=== PATIENT | female | born 1975 | race American Indian/Alaskan Native ===

== ENCOUNTER 2018-06-09 10:00 | Outpatient (CLI) | payer BC | END 2018-06-09 10:01 | disposition home or self-care (01) | LOC: WOUND 10:00 | PROVIDERS: ATTEND Surgery | DX: T86.828 Other complications of skin graft (allograft) (autograft) (principal); S71.002A Unspecified open wound, left hip, initial encounter; L97.122 Non-pressure chronic ulcer of left thigh with fat layer exposed; Z87.891 Personal history of nicotine dependence; V89.2XXA Person injured in unspecified motor-vehicle accident, traffic, initial encounter; Y93.89 Activity, other specified; Y92.89 Other specified places as the place of occurrence of the external cause; Y99.8 Other external cause status; Y83.2 Surgical operation with anastomosis, bypass or graft as the cause of abnormal reaction of the patient, or of later complication, without mention of misadventure at the time of the procedure | CPT/HCPCS: 10060; 11042; 11045; G0463 ==

== ENCOUNTER 2018-06-09 16:21 | Outpatient (CLI) | payer BC ==
[2018-06-09 16:38] LABS: Basophils % (Auto) 0.6 % (0.0-1.8); Eosinophils # (Auto) 0.1 K/mm3 (0.0-0.4); Eosinophils % (Auto) 0.9 % (0.0-4.3); Hematocrit 30.4 % (30.3-42.9); Lymphocytes # (Auto) 1.5 K/mm3 (1.2-5.4); Lymphocytes % (Auto) 20.4 % (13.4-35.0); Mean Corpuscular HGB Conc 33 % (30-34); Mean Corpuscular Hemoglobin 28 pg (28-32); Mean Corpuscular Volume 85 fl (79-97); Monocytes # (Auto) 0.7 K/mm3 (0.0-0.8); Monocytes % (Auto) 9.4 % (0.0-7.3); Platelet Count 408 K/mm3 (140-440); Red Blood Count 3.59 M/mm3 (3.65-5.03); Red Cell Distribution Width 15.6 % (13.2-15.2)
== END 2018-06-09 16:22 | disposition home or self-care (01) ==
LOC: LAB 16:21
PROVIDERS: ATTEND Surgery
DX: D64.9 Anemia, unspecified (principal)
CPT/HCPCS: 36415; 85025

== ENCOUNTER 2018-06-21 08:33 | Outpatient (CLI) | payer BC ==
[2018-06-21] MEDS ORDERED: XYLOCAINE TOPICAL 4% TP ONE ×2 (08:58→09:09)
== END 2018-06-21 08:34 | disposition home or self-care (01) ==
LOC: WOUND 08:33
PROVIDERS: ATTEND Surgery
DX: T86.828 Other complications of skin graft (allograft) (autograft) (principal); S71.002D Unspecified open wound, left hip, subsequent encounter; Z87.891 Personal history of nicotine dependence; X58.XXXD Exposure to other specified factors, subsequent encounter; Y83.2 Surgical operation with anastomosis, bypass or graft as the cause of abnormal reaction of the patient, or of later complication, without mention of misadventure at the time of the procedure
CPT/HCPCS: 97605

== ENCOUNTER 2018-06-28 08:42 | Outpatient (CLI) | payer BC ==
[2018-06-28] MEDS ORDERED: XYLOCAINE TOPICAL 4% TP ONE ×2 (08:58→09:14)
== END 2018-06-28 08:43 | disposition home or self-care (01) ==
LOC: WOUND 08:42
PROVIDERS: ATTEND Surgery
DX: T86.828 Other complications of skin graft (allograft) (autograft) (principal); S71.002D Unspecified open wound, left hip, subsequent encounter; Z87.891 Personal history of nicotine dependence; X58.XXXD Exposure to other specified factors, subsequent encounter; Y83.2 Surgical operation with anastomosis, bypass or graft as the cause of abnormal reaction of the patient, or of later complication, without mention of misadventure at the time of the procedure
CPT/HCPCS: 97605

== ENCOUNTER 2018-07-05 08:17 | Outpatient (CLI) | payer BC ==
[2018-07-05] MEDS ORDERED: XYLOCAINE TOPICAL 4% TP ONE ×2 (08:27→10:04)
== END 2018-07-05 08:18 | disposition home or self-care (01) ==
LOC: WOUND 08:17
PROVIDERS: ATTEND Surgery
DX: T86.828 Other complications of skin graft (allograft) (autograft) (principal); S71.002D Unspecified open wound, left hip, subsequent encounter; Z87.891 Personal history of nicotine dependence; X58.XXXD Exposure to other specified factors, subsequent encounter; Y83.2 Surgical operation with anastomosis, bypass or graft as the cause of abnormal reaction of the patient, or of later complication, without mention of misadventure at the time of the procedure
CPT/HCPCS: 97605

== ENCOUNTER 2018-07-13 08:13 | Outpatient (CLI) | payer BC ==
[2018-07-13] MEDS ORDERED: XYLOCAINE TOPICAL 4% TP ONE ×2 (08:51→09:26)
== END 2018-07-13 08:14 | disposition home or self-care (01) ==
LOC: WOUND 08:13
PROVIDERS: ATTEND Surgery
DX: T86.828 Other complications of skin graft (allograft) (autograft) (principal); S71.002D Unspecified open wound, left hip, subsequent encounter; Z87.891 Personal history of nicotine dependence; X58.XXXD Exposure to other specified factors, subsequent encounter; Y83.2 Surgical operation with anastomosis, bypass or graft as the cause of abnormal reaction of the patient, or of later complication, without mention of misadventure at the time of the procedure
CPT/HCPCS: 97605

== ENCOUNTER 2018-07-19 08:13 | Outpatient (CLI) | payer BC ==
[2018-07-19] MEDS ORDERED: XYLOCAINE TOPICAL 4% TP ONE ×2 (08:25→08:39)
== END 2018-07-19 08:14 | disposition home or self-care (01) ==
LOC: WOUND 08:13
PROVIDERS: ATTEND Surgery
DX: T86.828 Other complications of skin graft (allograft) (autograft) (principal); S71.002D Unspecified open wound, left hip, subsequent encounter; Z87.891 Personal history of nicotine dependence; X58.XXXD Exposure to other specified factors, subsequent encounter; Y83.2 Surgical operation with anastomosis, bypass or graft as the cause of abnormal reaction of the patient, or of later complication, without mention of misadventure at the time of the procedure
CPT/HCPCS: 97605

== ENCOUNTER 2018-07-26 08:07 | Outpatient (CLI) | payer BC ==
[2018-07-26] MEDS ORDERED: XYLOCAINE TOPICAL 4% TP ONE ×2 (08:12→08:23)
== END 2018-07-26 08:08 | disposition home or self-care (01) ==
LOC: WOUND 08:07
PROVIDERS: ATTEND Surgery
DX: T86.828 Other complications of skin graft (allograft) (autograft) (principal); S71.002D Unspecified open wound, left hip, subsequent encounter; Z87.891 Personal history of nicotine dependence; X58.XXXD Exposure to other specified factors, subsequent encounter; Y83.2 Surgical operation with anastomosis, bypass or graft as the cause of abnormal reaction of the patient, or of later complication, without mention of misadventure at the time of the procedure
CPT/HCPCS: 97605

== ENCOUNTER 2018-08-02 08:28 | Outpatient (CLI) | payer BC ==
[2018-08-02] MEDS ORDERED: XYLOCAINE TOPICAL 4% TP ONE ×2 (08:46→08:51)
== END 2018-08-02 08:29 | disposition home or self-care (01) ==
LOC: WOUND 08:28
PROVIDERS: ATTEND Surgery
DX: T86.828 Other complications of skin graft (allograft) (autograft) (principal); S71.002D Unspecified open wound, left hip, subsequent encounter; Z87.891 Personal history of nicotine dependence; X58.XXXD Exposure to other specified factors, subsequent encounter; Y83.2 Surgical operation with anastomosis, bypass or graft as the cause of abnormal reaction of the patient, or of later complication, without mention of misadventure at the time of the procedure
CPT/HCPCS: 97605

== ENCOUNTER 2018-08-09 08:00 | Outpatient (CLI) | payer BC ==
[2018-08-09] MEDS ORDERED: XYLOCAINE TOPICAL 4% TP ONE ×2 (08:07→15:22)
== END 2018-08-09 08:01 | disposition home or self-care (01) ==
LOC: WOUND 08:00
PROVIDERS: ATTEND Surgery
DX: T86.828 Other complications of skin graft (allograft) (autograft) (principal); S71.002D Unspecified open wound, left hip, subsequent encounter; Z87.891 Personal history of nicotine dependence; X58.XXXD Exposure to other specified factors, subsequent encounter; Y83.2 Surgical operation with anastomosis, bypass or graft as the cause of abnormal reaction of the patient, or of later complication, without mention of misadventure at the time of the procedure
CPT/HCPCS: 97605

== ENCOUNTER 2018-08-16 07:56 | Outpatient (CLI) | payer BC ==
[2018-08-16] MEDS ORDERED: XYLOCAINE TOPICAL 4% TP ONE ×2 (08:21→08:49)
== END 2018-08-16 07:57 | disposition home or self-care (01) ==
LOC: WOUND 07:56
PROVIDERS: ATTEND Surgery
DX: T86.828 Other complications of skin graft (allograft) (autograft) (principal); L97.122 Non-pressure chronic ulcer of left thigh with fat layer exposed; Z87.891 Personal history of nicotine dependence; Y83.2 Surgical operation with anastomosis, bypass or graft as the cause of abnormal reaction of the patient, or of later complication, without mention of misadventure at the time of the procedure